=== PATIENT | female | born 1990 | race Caucasian/White ===

== ENCOUNTER 2022-04-29 10:41 | Inpatient (IN) ==
[2022-04-29] MEDS ORDERED: OXYTOCIN 30 UNITS/500 ML BAG IV PRN ×3 (13:01→21:05)
--- NOTE | 2022-04-29 13:34 | History & Physical Report ---
Date of Service April 29, 2022 Assessment & Plan (1) Encounter for induction of labor: Plan: 32 y/o at 40 6/7 wga presents for IOL VSS Fetus cat 1 Labor - will start pit GBS neg epidural PRN Admission and Anticipated Discharge Date Admission Date: April 29, 2022 History of Present Illness Chief Complaint: IOL Primary Care Provider: AMELIE PCP 32 yo at 40 6/7 wga presents for IOL. 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 Hx: G1 2011 at 39 wks G2 2019 at 40 wks G3 current 02/2022 neg cotest denies hx STIs Allergies Allergy/AdvReac Type Severity Reaction Status Date / Time No Known Allergies Allergy Verified 04/25/22 10:24 Home Medications Medication Instructions Recorded Confirmed Type prenat.vits,will,ijf-txlq-hrfjj 1 tab PO DAILY 03/08/22 04/29/22 History calcium carbonate 500 mg calcium 500 mg PO TID 04/29/22 04/29/22 History (1,250 mg) chewable tablet docusate sodium 100 mg capsule 100 mg PO DAILY 04/29/22 04/29/22 History (Colace) ferrous sulfate 325 mg (65 mg 325 mg PO BID 04/29/22 04/29/22 History iron) tablet (iron) Patient History Medical History (Updated 04/29/22 @ 13:33 by Alexus Jang MD) History of chicken pox Surgical History S/P tonsillectomy Family History Grandmother (Maternal) Breast cancer Mother Breast cancer Father Lung cancer CHF (congestive heart failure) Denies family history of Ovarian cancer Colorectal cancer Social History (Updated 04/29/22 @ 13:21 by Ciarra Lin RN) Smoking Status: Former smoker Smoking End Date: 11-19-21; Second Hand Exposure: No; Hx Alcohol Use: No Hx Substance Use: No Preferred Language: Bangladeshi Hearing Ability: Normal Surface Supply Breathing Apparatus Required: No Beliefs That Will Affect Care: None marital status: Single marital status details: Aidan Storeyivett (26) [phone] Current Living Situation: Family and Significant Other Current Living Situation Comment: lives with S.O., daughter, son and dog current occupational status: unemployed Feels Safe at Home: Yes Gender Identity: Female Physical Exam Genitourinary: OB Exam Abdomen: + vertex and + estimated weight (8-9) Manual OB Exam: + cervical dilation (3-4), + cervical effacement 70% and + station -2 OB Exam Monitor Tracing: + external FHT monitor used, + external uterine monitor used (irreg ctx) and + category I (135/mod/+accel/-decel) Results & Data ([facility]) Vital Signs (Past 12 Hours) Vital Signs Pulse BP 04/29/22 13:10 106 H 129/80 Laboratory Results OB Labs: Blood Type A Positive 03/13/22 Antibody Screen NEGATIVE 03/13/22 Hemoglobin 9.6 g/dL (12.0-16.0) L 03/13/22 E Hematocrit 30.9 % (37-47) L 03/13/22 Mean Corpuscular Volume 76.9 fL (80-100) L 03/13/22 Platelet Count 290 K/uL (130-400) 03/13/22 Rubella IgG Antibody Immune (Immune) 03/13/22 Rapid Plasma Reagin Nonreactive (Nonreactive) 03/13/22 Hepatitis B Surface Antigen. NON-REACTIVE (NON-REACTIVE) 03/13/22 Hepatitis C Antibody (EIA) NON-REACTIVE (NON-REACTIVE) 03/13/22 HIV (1&2) Ag and Ab Confirmation NON-REACTIVE (NON-REACTIVE) 03/13/22 Glucose 1 Hour 50 gm Load 99 mg/dl (70-130) 03/13/22 OB Optional Labs: Chlamydia trachomatis RNA NOT DETECTED (NOT DETECTED) 03/13/22 Neisseria gonorrhoeae RNA NOT DETECTED (NOT DETECTED) 03/13/22 Coding Level of Care Code None Diagnoses Encounter for induction of labor Z34.90
[2022-04-29 13:35] LABS: Hematocrit (blood only) 33.1 % (34.1-44.9); Hemoglobin 10.1 g/dl (12.0-16.0); Mean Corpuscular Hemoglobin 23.3 pg (25.0-34.0); Mean Corpuscular Hgb Conc 30.5 g/dL (32.0-36.0); Mean Corpuscular Volume 76.3 fL (80.0-100.0); RDW Coefficient of Variation 19.9 % (11.5-14.5); RDW Standard Deviation 54.8 fL (36.4-46.3); Red Blood Count 4.34 M/uL (3.93-5.22); White Blood Count 12.11 K/ul (4.8-10.8)
[2022-04-29 13:40] LABS: Platelet Count 200 K/uL (130-400)
[2022-04-29] MEDS: LACTATED RINGER'S 1,000 ML IV PRN ×2 (13:53→18:18)
[2022-04-29] MEDS ORDERED: fentaNYL citrate 100 MCG/2 ML VIAL ONE (17:56)
[2022-04-29] MEDS ORDERED: SODIUM CHLORIDE 0.9% INJ 10 ML VIAL ONE (17:56)
[2022-04-29] MEDS ORDERED: ePHEDrine sulfate 50 MG/ML AMP ONE (17:56)
[2022-04-29] MEDS ORDERED: LIDOCAINE 2%/EPINEPHRINE 1:200,000 20 ML SDV ONE (17:57)
[2022-04-29] MEDS ORDERED: BUPIVACAINE 0.25% 30 ML VIAL ONE (17:57)
[2022-04-29] MEDS ORDERED: fentaNYL 2MCG/ML ROPIVACAINE 1.25MG/ML 100 ML BAG EPI ONE (17:58)
--- NOTE | 2022-04-29 18:54 | Anesthesiology Consultation ---
Date of Service April 29, 2022 Assessment & Plan Chart Review Chart Review: Acceptable Risk for Labor Epidural Consults Requested none ASA [id number] Proposed Anesthesia Anesthesia Type: Labor Epidural History Height/Weight Height: 5 ft 5 in Weight: 97.069 kg Allergies Allergy/AdvReac Type Severity Reaction Status Date / Time No Known Allergies Allergy Verified 04/25/22 10:24 Medications Home Medications Medication Instructions Recorded Confirmed Last Taken prenat.vits,will,tly-[id number] 1 tab PO DAILY 03/08/22 04/29/22 04/29/22 08:00 calcium carbonate 500 mg calcium 500 mg PO TID 04/29/22 04/29/22 Unknown (1,250 mg) chewable tablet docusate sodium 100 mg capsule 100 mg PO DAILY 04/29/22 04/29/22 04/29/22 08:00 (Colace) ferrous sulfate 325 mg (65 mg 325 mg PO BID 04/29/22 04/29/22 04/29/22 08:00 iron) tablet (iron) Active Medications Generic Name Dose Route Start Last Admin Trade Name Freq PRN Reason Stop Dose Admin Lactated Ringer's 1,000 mls @ 125 mls/hr 04/29/22 13:01 04/29/22 18:18 Lr IV 05/01/22 13:00 999 mls/hr .Q8H PRN Administration L&D Protocol Protocol Oxytocin 30 units in 500 mls @ 14 mls/hr 04/29/22 13:21 04/29/22 18:00 Pitocin IV 05/01/22 13:20 0.84 units/hr .Q24H PRN 14 mls/hr Labor Induction/Augmentation Titration Protocol 0.84 UNITS/HR Past Medical History Medical History (Updated 04/29/22 @ 13:33 by Alexus Jang MD) History of chicken pox Past Family History Family History Grandmother (Maternal) Breast cancer Mother Breast cancer Father Lung cancer CHF (congestive heart failure) Denies family history of Ovarian cancer Colorectal cancer Past Surgical History Surgical History S/P tonsillectomy Social History Smoking Status: Former smoker Do You Dip or Chew Tobacco: No Smoking End Date: 11-19-21 Hx Alcohol Use: No Hx Substance Use: No substance use type: does not use Physical Exam Vital Signs Last Vital Signs Temp 36.6 C 04/29/22 18:05 Pulse 85 04/29/22 18:53 Resp 20 04/29/22 18:05 BP 112/75 04/29/22 18:53 Pulse Ox 99 04/29/22 18:52 Testing Laboratory Results 04/29/22 13:14
[2022-04-29] MEDS ORDERED: ePHEDrine sulfate 50 MG/ML AMP IV PRN (18:56)
[2022-04-29] MEDS ORDERED: NALBUPHINE HCL INJ 10 MG/ML AMP IV PRN (18:56)
[2022-04-29] MEDS ORDERED: NALOXONE HCL 0.4 MG/1 ML VIAL/CARP IV PRN (18:56)
[2022-04-29] MEDS ORDERED: NALOXONE HCL 1 MG in SODIUM CHLORIDE 0.9% 1000ML 1,000 ML IV PRN (18:56)
[2022-04-29] MEDS ORDERED: diphenhydrAMINE 50 MG/ML VIAL IV PRN (18:56)
[2022-04-29] MEDS ORDERED: fentaNYL 2MCG/ML ROPIVACAINE 1.25MG/ML 100 ML BAG EPI PRN (18:56)
--- NOTE | 2022-04-29 19:29 | Labor Progress Brief Note ---
Date of Service April 29, 2022 Subjective comfortable [facility] epidural Assessment & Plan (1) Encounter for induction of labor: Plan continue current management, anticipate , fetus category one. Admission and Anticipated Discharge Date Admission Date: April 29, 2022 Physical Exam Physical Exam: cx--7=[id number] arom--clear toco--q2-3, pit at 14 efm--120s with mod variability, accels to 150s, no decels Results & Data ([facility]) Vital Signs (Past 12 Hours) Vital Signs Temp Pulse Resp BP BP Pulse Ox O2 Del Method 04/29/22 19:21 36.4 C L 16 121/75 100 Room Air 04/29/22 14:08 20 04/29/22 19:27 91 H 94 04/29/22 19:25 81 121/75 04/29/22 19:22 78 100 04/29/22 19:20 85 93 04/29/22 19:18 16 04/29/22 19:18 36.4 C L 16 04/29/22 19:17 94 H 100 04/29/22 19:12 88 98 04/29/22 19:10 93 H 117/75 04/29/22 19:07 83 98 04/29/22 19:02 82 99 04/29/22 18:57 91 H 100 04/29/22 18:55 77 117/74 04/29/22 18:52 78 99 04/29/22 18:53 85 112/75 04/29/22 18:51 91 H 113/78 04/29/22 18:49 86 114/66 04/29/22 18:47 80 113/66 99 04/29/22 18:45 77 114/75 04/29/22 18:43 82 111/70 04/29/22 18:42 69 100 04/29/22 18:41 71 119/72 04/29/22 18:39 66 116/75 04/29/22 18:37 75 109/73 100 04/29/22 18:36 82 90 04/29/22 18:35 70 121/80 04/29/22 18:32 74 100 04/29/22 18:27 68 96 04/29/22 18:28 74 92 04/29/22 18:22 83 100 04/29/22 18:05 36.6 C 72 20 114/71 0801/22 17:04 85 115/82 04/29/22 16:03 36.5 C 87 20 112/65 04/29/22 15:01 96 H 20 122/66 04/29/22 14:47 90 123/60 04/29/22 14:32 95 H 18 124/70 04/29/22 14:16 99 H 125/71 04/29/22 14:01 95 H 131/77 04/29/22 13:10 36.7 C 106 H 20 129/80 Coding Level of Care Code None Diagnoses Encounter for induction of labor Z34.90
[2022-04-29] MEDS ORDERED: oxyCODONE/ACETAMINOPHEN 5mg/325mg TAB PO PRN (21:05)
[2022-04-29] MEDS ORDERED: bisacodyL 10 MG SUPP PR PRN (21:05)
[2022-04-29] MEDS ORDERED: BENZOCAINE 20% AER SPR 82.5 GM CAN EXT PRN (21:05)
[2022-04-29] MEDS ORDERED: METHYLERGONOVINE MALEATE 0.2 MG/ML AMP IM ONE (21:05)
[2022-04-29] MEDS ORDERED: DIPHTHERIA/TETANUS/PERTUSSIS 0.5 ML SYR/VIAL IM ONE (21:05)
[2022-04-29] MEDS ORDERED: HYDROCORTISONE ACETATE 25 MG SUPP PR PRN (21:05)
--- NOTE | 2022-04-29 21:11 | Delivery Summary ---
Vaginal Delivery Summary Date of Service April 29, 2022 Vaginal Delivery Summary and 2nd Degree LAC Pre-operative Diagnosis: at 40 6/7 induction for post dates Post-operative Diagnosis: same Procedure: pitocin induction epidural arom clear second degree laceration and repair EBL: 500cc Anesthesia: epidural Procedure: The patient pushed for 4 contractions to deliver a viable male infant in judith position, restituting to right transverse. The anterior shoulder was then delivered immedately. It delivered slowly but did there was really no shoulder dystocia. Did hear a pop with delivery of the shoulders. the rest of the baby was then delivered without delivery. The baby was vigorous. The nose and mouth were bulb suctioned and the was placed in the maternal abdomen for drying and attention. Cord was clamped and cut at one minute of life. Cord blood and segment obtained. Placenta delivered spontaneous, intact with a three vessel cord. Cervix/sulci/rectum were intact. A second degree perineal laceration was repaired in the normal standard fashion. Hemostasis obtained with dilute pitocin, IM methergine and fundal massage. Apgars were 8/9. Mother and baby doing well at the end of the delivery. [facility] Vaginal Delivery Charge Delivery Type Details: and 2nd Degree LAC
[2022-04-29] MEDS: IBUPROFEN 600 MG TAB PO PRN (21:59)
[2022-04-29] MEDS: ACETAMINOPHEN 325 MG TAB PO PRN (21:59)
--- NOTE | 2022-04-29 22:03 | Anesthesia Procedure Note ---
Date of Service April 29, 2022 Anesthesia Post Epidural Note Vital Signs Vital Signs: Temp Pulse Resp BP Pulse Ox O2 Del Method 36.4 C L 100 H 16 125/65 90 04/29/22 20:00 04/29/22 22:00 04/29/22 19:21 04/29/22 21:56 04/29/22 22:00 04/29/22 19:21 Pain Intensity Abdomen: Pain Intensity: 0 Notes Mental Status: alert / awake / arousable Nausea / Vomiting: adequately controlled Pain: adequately controlled Airway Patency, RR, SpO2: stable & adequate BP & HR: stable & adequate Hydration State: stable & adequate Neuraxial Anesthesia: was administered and sensory block is resolving Anesthetic Complications: no major complications apparent and Pt Satisfied with anesthetic care Epidural: Removed without complications and With tip intact
[2022-04-30] MEDS: ACETAMINOPHEN 325 MG TAB PO PRN ×3 (03:23→16:09)
[2022-04-30] MEDS: IBUPROFEN 600 MG TAB PO PRN ×4 (03:24→21:37)
[2022-04-30 06:18] LABS: Hematocrit (blood only) 29.2 % (34.1-44.9)
--- NOTE | 2022-04-30 06:41 | Obstetrical Progress Note ---
Date of Service <Ruth Reid Renan - Last Filed: 04/30/22 06:41> April 30, 2022 Assessment & Plan <Ruth Limbyran - Last Filed: 04/30/22 06:41> (1) state: Patient is PPD 1 s/p and doing well. - Eating well, voiding well, ambulating well - Vitals reviewed and within normal limits - Pain well controlled with ibuprofen 600 mg Q4H PRN - OOB, ambulation, diet progression as tolerated - Blood type: A+, GBS neg, rubella immune - Plan to discharge tomorrow - After discharge, 6 [address] follow up with Dr. Waldrop <Anika Waldrop MD, FACOG - Last Filed: 04/30/22 07:40> (1) state: Subjective <Ruth Limbryan - Last Filed: 04/30/22 06:41> Peri Gonzales is a 32 yo female who is now PPD #1 following spontaneous vaginal delivery at 40 weeks. Reports feeling well this morning. She denies abdominal cramping and 0/10 pain well managed on analgesics. Voiding without issue. Has not had much to eat considering she delivered last evening. No nausea or vomiting. Able to ambulate some. She has passed gas but no bowel movements. Persistent lochia with some improvement this morning. Currently bottle feeding. Review of Systems Denies fever, chills, sweats. Denies SOB, difficulty breathing, chest pain, palpitations, and chest pressure. Denies breast pain. Denies dysuria. Denies headache or changes in vision. Physical Exam <Ruth LalaOdell Urrutia - Last Filed: 04/30/22 06:41> General: Alert and oriented. No acute distress. CV: Regular rate and rhythm. No murmurs. Respiratory: CTA bilaterally. No rhonchi, wheezes, or crackles. No increased work of breathing. Abdomen: Positive bowel sounds. Soft, nontender, non distended. Uterus: Fundus firm and palpable 2 cm below the umbilicus. Lower extremities: Bilateral 2+ pitting edema from feet to calves. Both calves tender to the squeeze. No deep calf pain. Elieser's negative bilaterally. Results & Data ([facility]) <Ruthanita Urrutia, DO - Last Filed: 04/30/22 06:41> Vital Signs (Past 12 Hours) Vital Signs Temp Pulse Resp BP BP Pulse Ox O2 Del Method 04/30/22 03:15 36.5 C 59 L 16 113/72 100 04/29/22 23:15 36.5 C 61 17 116/75 100 04/29/22 19:21 36.4 C L 16 121/75 100 Room Air 04/29/22 22:55 61 128/79 04/29/22 22:41 58 L 122/78 04/29/22 22:32 79 100 04/29/22 22:31 54 L 90 04/29/22 22:27 60 100 04/29/22 22:26 70 134/81 04/29/22 22:22 71 100 04/29/22 22:17 83 100 04/29/22 22:12 82 100 04/29/22 22:10 82 131/67 04/29/22 22:07 81 100 04/29/22 22:02 82 100 04/29/22 22:00 100 H 90 04/29/22 21:57 94 H 99 04/29/22 21:56 87 125/65 04/29/22 21:52 95 H 98 04/29/22 21:47 95 H 100 04/29/22 21:42 91 H 100 04/29/22 21:41 87 118/58 L 04/29/22 21:37 83 99 04/29/22 21:32 75 99 04/29/22 21:33 88 90 04/29/22 21:27 70 100 04/29/22 21:25 75 123/65 04/29/22 21:22 81 100 04/29/22 21:17 65 100 04/29/22 21:12 65 100 04/29/22 21:10 71 128/74 04/29/22 21:07 74 100 04/29/22 21:02 81 100 04/29/22 20:57 81 99 04/29/22 20:55 77 118/63 04/29/22 20:52 69 99 04/29/22 20:51 68 119/58 L 04/29/22 20:47 75 100 04/29/22 20:44 67 93 04/29/22 20:42 74 100 04/29/22 20:37 100 04/29/22 20:37 70 04/29/22 20:37 89 88 L 04/29/22 20:32 71 99 04/29/22 20:27 73 100 04/29/22 20:26 76 126/79 04/29/22 20:22 72 100 04/29/22 20:17 64 99 04/29/22 20:12 96 H 99 04/29/22 20:10 92 H 127/75 04/29/22 20:07 86 99 04/29/22 20:02 60 98 04/29/22 20:00 36.4 C L 04/29/22 19:59 36.4 C L 04/29/22 19:57 69 99 04/29/22 19:56 83 120/72 04/29/22 19:53 89 91 04/29/22 19:52 93 H 99 04/29/22 19:47 81 99 04/29/22 19:42 58 L 99 04/29/22 19:40 107 H 111/70 04/29/22 19:37 74 100 04/29/22 19:32 71 99 04/29/22 19:27 100 04/29/22 19:27 77 04/29/22 19:27 91 H 94 04/29/22 19:25 81 121/75 04/29/22 19:22 78 100 04/29/22 19:20 85 93 04/29/22 19:18 16 04/29/22 19:18 36.4 C L 16 04/29/22 19:17 94 H 100 04/29/22 19:12 88 98 04/29/22 19:10 93 H 117/75 04/29/22 19:07 83 98 04/29/22 19:02 82 99 04/29/22 18:57 91 H 100 04/29/22 18:55 77 117/74 04/29/22 18:52 78 99 04/29/22 18:53 85 112/75 04/29/22 18:51 91 H 113/78 04/29/22 18:49 86 114/66 04/29/22 18:47 80 113/66 99 04/29/22 18:45 77 114/75 04/29/22 18:43 82 111/70 04/29/22 18:42 69 100 04/29/22 18:41 71 119/72 04/29/22 18:39 66 116/75 04/29/22 18:37 75 109/73 100 04/29/22 18:36 82 90 04/29/22 18:35 70 121/80 <Anika Waldrop MD, FACOG - Last Filed: 04/30/22 07:40> Co-Signing Physician Notes Resident Physician Supervision Note: I interviewed and examined the patient. Discussed with Dr. Urrutia and agree with findings and plan as documented in the note. Any exceptions or clarifications are listed here: Doing well. Routine care. Considering d/c later this evening. Documented By: Anika Waldrop MD, FACOG Resident Activity Tracking <Ruth Urrutia, - Last Filed: 04/30/22 06:41> Resident Involvement: Resident Care Provided Care Provided: OB Delivery
[2022-04-30] MEDS: DOCUSATE SODIUM 100 MG CAP PO SCH ×2 (07:38→20:03)
[2022-04-30] MEDS: PRENATAL VITAMIN 1 TAB PO SCH (07:38)
[2022-04-30 16:19] LABS: Amphetamines+Metham, Urine Neg (Neg); Barbiturates, Urine Neg (Neg); Benzodiazepine, Urine Neg (Neg); Cocaine, Urine Neg (Neg); MDMA (Ecstacy), Urine Neg (Neg); Methadone, Urine Neg (Neg); Opiate, Urine Neg (Neg); Phencyclidine, Urine Neg (Neg)
[2022-04-30] MEDS ORDERED: bisacodyL 5 MG TABEC PO SCH (20:00)
--- NOTE | 2022-05-01 06:36 | Obstetrical Progress Note ---
Date of Service <Ruth LalaOdell Urrutia - Last Filed: 05/01/22 06:36> May 01, 2022 Assessment & Plan <Ruth Limbryan - Last Filed: 05/01/22 06:36> (1) state: Patient is PPD 2 s/p with second degree lac and doing well. - Eating well, voiding well, ambulating well - Vitals reviewed and within normal limits - Pain well controlled - OOB, ambulation, diet progression as tolerated - Blood type: A+, GBS neg, rubella immune - Plan to discharge today - After discharge, 6 week follow up with Dr. Waldrop <Lorna Santos MD, FACOG - Last Filed: 05/01/22 07:39> (1) state: Subjective <Ruth Limbryan - Last Filed: 05/01/22 06:36> Peri Gonzales is a 32 yo female who is now PPD #2 following spontaneous va ginal delivery at 40 weeks. Reports feeling well this morning. She denies abdominal cramping and 0/10 pain. Voiding without issue. Tolerating regular meals overnight and able to ambulate some. She has passed gas and had bowel movements. Persistent lochia with some improvement this morning. Currently bottle feeding. Review of Systems Denies fever, chills, sweats. Denies SOB, difficulty breathing, chest pain, palpitations, and chest pressure. Denies breast pain. Denies dysuria. Denies headache or changes in vision. Physical Exam <Ruth Franklin Urrutia DO - Last Filed: 05/01/22 06:36> General: Alert and oriented. No acute distress. CV: Regular rate and rhythm. No murmurs. Respiratory: CTA bilaterally. No rhonchi, wheezes, or crackles. No increased work of breathing. Abdomen: Positive bowel sounds. Soft, nontender, non distended. Uterus: Fundus firm and palpable 3 cm below the umbilicus. Lower extremities: Bilateral lower extremity edema from feet to mid calf. No deep calf pain. Elieser's negative bilaterally. Results & Data ([facility]) <Ruth Franklin Urrutia DO - Last Filed: 05/01/22 06:36> Vital Signs (Past 12 Hours) Vital Signs Temp Pulse Resp BP Pulse Ox 05/01/22 03:45 36.7 C 82 16 110/72 97 04/30/22 23:45 36.5 C 63 15 107/69 100 04/30/22 19:45 36.7 C 62 16 118/78 99 <Lorna Santos MD, FACOG - Last Filed: 05/01/22 07:39> Co-Signing Physician Notes Resident Physician Supervision Note: I was present with [Name of resident] during the history and exam. I discussed the case with the resident and agree with the findings and plan as documented in the note. Any exceptions or clarifications are listed here: [None] Documented By: Lorna Santos MD, FACOG Resident Activity Tracking <Ruth Urrutia DO - Last Filed: 05/01/22 06:36> Resident Involvement: Resident Care Provided Care Provided: OB Delivery
[2022-05-01] MEDS: PRENATAL VITAMIN 1 TAB PO SCH (08:22)
[2022-05-01] MEDS: DOCUSATE SODIUM 100 MG CAP PO SCH (08:22)
[2022-05-01] MEDS: IBUPROFEN 600 MG TAB PO PRN (11:38)
== END 2022-05-01 15:55 | disposition home or self-care (01) | DRG 807 ==
LOC: 4S1 13:00 → 4E2 23:15
DX: O70.1 Second degree perineal laceration during delivery; Z37.0 Single live birth; Z3A.40 40 weeks gestation of pregnancy; Z87.891 Personal history of nicotine dependence; O48.0 Post-term pregnancy